=== PATIENT | female | born 1955 ===

== ENCOUNTER 2021-05-18 08:35 | Day surgery (SDC) | payer OTHER | END 2021-05-18 14:10 | disposition home or self-care (01) | LOC: AMB-ENDOS 08:35 | PROVIDERS: ATTEND Surgery | DX: D12.2 Benign neoplasm of ascending colon (principal); Z20.822 Contact with and (suspected) exposure to COVID-19 ==

== ENCOUNTER 2025-04-25 13:04 | Outpatient (CLI) | payer OTHER | END 2025-04-25 13:07 | disposition home or self-care (01) | LOC: TOM 13:04 | PROVIDERS: ATTEND Orthopaedic Surgery | DX: M79.672 Pain in left foot (principal); M24.175 Other articular cartilage disorders, left foot ==